=== PATIENT | male | born 1970 | race Caucasian/White ===

== ENCOUNTER 2019-08-17 17:50 | Emergency (ER) | payer MEDICAID, OTHER ==
[~2019-08-17] VITALS: Ht 188 cm; Wt 77.3 kg
[~2019-08-17 17:50] MED LIST: BACDS PO; CLOT24CR TOP; HYDR1TAB PO; IBUP-1984 PO; MOT200T PO
[2019-08-17 18:09] VITALS: BP 119/75
[2019-08-17] MEDS ORDERED: HYDROcodone/acetaminophen 5mg/325mg tablet PO ONE (19:15)
[2019-08-17] MEDS ORDERED: BUPIVAcaine/PF 7.5mg/ml (0.75%) 10ml vial IJ ONE (19:15)
[2019-08-17] MEDS ORDERED: CLIN150C2 PO (20:08)
[2019-08-17] MEDS ORDERED: HYDR-3965 PO (20:08)
[2019-08-17] MEDS ORDERED: L. R1CAP4 PO (20:10)
== END 2019-08-17 20:20 | disposition home or self-care (01) ==
LOC: ER 17:50
DX: K04.7 Periapical abscess without sinus (principal); K02.9 Dental caries, unspecified; Z88.0 Allergy status to penicillin; Z79.899 Other long term (current) drug therapy
CPT/HCPCS: 41800; 99283; J3490

== ENCOUNTER 2019-12-09 15:26 | Emergency (ER) | payer MEDICAID ==
[~2019-12-09] VITALS: Ht 188 cm; Wt 75.9 kg
[~2019-12-09 15:26] MED LIST changes: +L. R1CAP4 PO
[2019-12-09 15:41] VITALS: BP 103/64
[2019-12-09] MEDS ORDERED: CEPH500C5 PO (17:00)
[2019-12-09] MEDS ORDERED: SULF1TAB49 PO (17:00)
== END 2019-12-09 17:14 | disposition home or self-care (01) ==
LOC: ER 15:26
DX: L02.31 Cutaneous abscess of buttock (principal); Z86.19 Personal history of other infectious and parasitic diseases; Z88.0 Allergy status to penicillin; Z79.899 Other long term (current) drug therapy
CPT/HCPCS: 10060; 99283

== ENCOUNTER 2021-01-12 11:54 | Emergency (ER) | payer MEDICAID ==
[~2021-01-12] VITALS: Ht 188 cm; Wt 72.7 kg
[2021-01-12 12:13] VITALS: BP 117/74
--- NOTE | 2021-01-12 13:23 | NUR ---
PT CALLED X3 TO ER ROOM, PT NIL, CHG RN/PROVIDER NOTIFIED, NO FURTHER ACTION ORDERED.
== END 2021-01-12 13:23 | disposition left against medical advice (07) ==
LOC: ER 11:55
DX: R10.9 Unspecified abdominal pain (principal); Z53.21 Procedure and treatment not carried out due to patient leaving prior to being seen by health care provider

== ENCOUNTER 2021-09-27 11:36 | Emergency (ER) | payer MEDICAID ==
[~2021-09-27] VITALS: Ht 188 cm; Wt 71.0 kg
[2021-09-27 14:16] LABS: HEMATOCRIT 35.7 % (42.0-52.0); HEMOGLOBIN 11.1 g/dl (14.0-17.9); LYMPHOCYTES % (AUTO) 2.8 % (21-51); RED CELL DISTRIBUTION WIDTH 19.6 % (11.5-14.5)
[2021-09-27 14:21] LABS: BASOPHILS # (AUTO) 10.6 X10'3 (0-0.2); BASOPHILS % (AUTO) 7.7 % (0-1); EOSINOPHILS # (AUTO) 5.6 X10'3 (0-0.9); LYMPHOCYTES # (AUTO) 3.9 X10'3 (1.1-4.8); MEAN CORPUSCULAR HEMOGLOBIN 27.6 PG (27.0-31.0); MEAN PLATELET VOLUME 8.4 FL (7.4-10.4); MONOCYTES # (AUTO) 2.2 X10'3 (0-0.9); MONOCYTES % (AUTO) 1.6 % (2-12); NEUTROPHILS % (AUTO) 83.9 % (42-75); PLATELET COUNT 818 X10'3 (140-440); RED BLOOD COUNT 4.01 X10'6 (4.70-6.10)
[2021-09-27 14:24] LABS: WHITE BLOOD COUNT 138.4 X10'3 (4.5-11.0)
[2021-09-27 14:32] LABS: ALANINE AMINOTRANSFERASE 12 U/L (12-78); ALBUMIN 3.1 G/DL (3.4-5.0); ALBUMIN/GLOBULIN RATIO 0.7 (1.1-1.5); ALKALINE PHOSPHATASE 97 IU/L (46-116); ANION GAP 8 (8-16); ASPARTATE AMINO TRANSFERASE 13 U/L (10-37); BILIRUBIN,TOTAL 0.4 MG/DL (0.1-1.0); BLOOD UREA NITROGEN 15 MG/DL (7-18); BUN/CREATININE RATIO 14.7 (5.4-32.0); CALCIUM 8.3 MG/DL (8.5-10.1); CHLORIDE 103 MMOL/L (99-107); CREATININE 1.02 MG/DL (0.60-1.10); GLUCOSE 87 MG/DL (70-104); LIPASE 50 U/L (73-393); POTASSIUM 4.6 MMOL/L (3.5-5.1); SODIUM 139 MMOL/L (135-145); TOTAL CARBON DIOXIDE 28.3 MMOL/L (24-32); TOTAL PROTEIN 7.8 G/DL (6.4-8.2); eGFR 77 ML/MIN
[2021-09-27 15:26] LABS: PLATELET ESTIMATE INCREASED; TOTAL CELLS COUNTED 100
[2021-09-27 15:27] LABS: GIANT PLATELET FEW; LARGE PLATELETS MODERATE
[2021-09-27 15:28] LABS: NUCLEATED RED BLOOD CELLS 3 /100WBC (0-0)
[2021-09-27 15:52] LABS: MICROCYTOSIS 2+; POLYCHROMASIA 1+
[2021-09-27] MEDS ORDERED: normal saline 1000ml 1,000 ML IV ONE (18:05)
[2021-09-27] MEDS ORDERED: ketorolac tromethamine 15mg/ml inj. IV ONE (18:05)
[2021-09-27] MEDS ORDERED: morphine 4 MG/ML inj SYRINge IV ONE ×2 (18:05→19:50)
[2021-09-27] MEDS ORDERED: iohexol 300mg/ml 100ml inj. ONE (18:06)
[2021-09-27] MEDS ORDERED: PANT-47 PO (19:48)
[2021-09-27] MEDS ORDERED: MELO-100 PO (19:48)
[2021-09-27] MEDS ORDERED: HYDR-3965 PO (19:48)
[2021-09-27] MEDS ORDERED: famotidine/PF 10 mg/ml inj IV ONE (19:50)
[2021-09-27] MEDS ORDERED: HYDROcodone/acetaminophen 5mg/325mg tablet PO ONE (19:50)
[2021-09-27] MEDS ORDERED: acetaminophen 325mg tablet PO ONE (19:50)
[2021-09-27] MEDS ORDERED: pantoprazole 40 MG vial IV ONE (19:50)
--- NOTE | 2021-09-27 20:41 | NUR ---
PATIENT NOT IN LOBBY
[2021-09-27 20:48] VITALS: BP 107/74
== END 2021-09-27 20:50 | disposition home or self-care (01) ==
LOC: ER 11:37
DX: D72.829 Elevated white blood cell count, unspecified (principal); Z88.0 Allergy status to penicillin; Z79.899 Other long term (current) drug therapy
CPT/HCPCS: 36415; 74178; 80053; 83690; 85007; 85025; 96361; 96374; 96375; 96376; 99284; C9113; J1885; J2270; J3490; J7030; Q9967

== ENCOUNTER 2022-09-14 04:25 | Emergency (ER) | payer MEDICAID ==
[~2022-09-14] VITALS: Ht 188 cm; Wt 68.2 kg
[~2022-09-14 04:25] MED LIST changes: +MELO-100 PO; +PANT-47 PO
[2022-09-14] MEDS ORDERED: ondansetron/PF 4mg/2ml inj IV ONE (04:35)
[2022-09-14] MEDS ORDERED: morphine 4 MG/ML inj SYRINge IV ONE (04:35)
[2022-09-14] MEDS ORDERED: proparacaine 0.5% ophthalmic drops 15ml LEFTEYE STA (04:40)
[2022-09-14] MEDS ORDERED: timolol 0.5% ophthalmic solution 5ml bottle LEFTEYE ONE (04:50)
[2022-09-14] MEDS ORDERED: latanoprost 0.005% 2.5ml ophthalmic drops LEFTEYE ONE (04:50)
[2022-09-14] MEDS ORDERED: fentaNYL/PF 50MCG/1 ML 2ML syringe IV ONE ×2 (05:10→05:30)
[2022-09-14 05:17] LABS: BASOPHILS % (AUTO) 0.6 % (0-1); EOSINOPHILS % (AUTO) 0.7 % (0-6); HEMATOCRIT 39.1 % (42.0-52.0); HEMOGLOBIN 13.1 g/dl (14.0-17.9); LYMPHOCYTES # (AUTO) 1.4 X10'3 (1.1-4.8); LYMPHOCYTES % (AUTO) 30.9 % (21-51); MEAN CORPUSCULAR HGB CONC 33.5 g/dL (33.0-36.5); MEAN CORPUSCULAR VOLUME 110.4 FL (78-98); MEAN PLATELET VOLUME 7.4 FL (7.4-10.4); MONOCYTES # (AUTO) 0.4 X10'3 (0-0.9); MONOCYTES % (AUTO) 9.5 % (2-12); NEUTROPHILS # (AUTO) 2.6 X10'3 (1.8-7.7); NEUTROPHILS % (AUTO) 58.3 % (42-75); PLATELET COUNT 127 X10'3 (140-440); RED BLOOD COUNT 3.54 X10'6 (4.70-6.10); RED CELL DISTRIBUTION WIDTH 14.9 % (11.5-14.5); WHITE BLOOD COUNT 4.4 X10'3 (4.5-11.0)
[2022-09-14 05:32] LABS: ALANINE AMINOTRANSFERASE 27 U/L (12-78); ALBUMIN 4.1 G/DL (3.4-5.0); ALBUMIN/GLOBULIN RATIO 1.1 (1.1-1.5); ALKALINE PHOSPHATASE 104 IU/L (46-116); ANION GAP 8 (8-16); ASPARTATE AMINO TRANSFERASE 24 U/L (10-37); BILIRUBIN,TOTAL 0.7 MG/DL (0.1-1.0); BLOOD UREA NITROGEN 11 MG/DL (7-18); BUN/CREATININE RATIO 13.4 (5.4-32.0); CALCIUM 9.3 MG/DL (8.5-10.1); CHLORIDE 101 MMOL/L (99-107); CREATININE 0.82 MG/DL (0.60-1.10); GLUCOSE 113 MG/DL (70-104); POTASSIUM 3.7 MMOL/L (3.5-5.1); SODIUM 138 MMOL/L (135-145); TOTAL CARBON DIOXIDE 28.7 MMOL/L (24-32); eGFR > 90 ML/MIN
[2022-09-14] MEDS ORDERED: ketorolac trometh. 30mg/ml inj. IV ONE (05:40)
[2022-09-14 05:41] LABS: PLATELET ESTIMATE DECREASED
[2022-09-14] MEDS ORDERED: dorzolamide 2% ophthalmic drops 10ml LEFTEYE ONE (05:45)
[2022-09-14] MEDS ORDERED: acetaZOLAMIDE IV 500mg inj IV SCH ×2 (06:00→08:00)
[2022-09-14] MEDS ORDERED: acetaZOLAMIDE IV 500mg inj IV ONE (06:00)
[2022-09-14 06:34] VITALS: BP 118/76
== END 2022-09-14 11:20 | disposition home or self-care (01) ==
LOC: ER 04:26
DX: H02.846 Edema of left eye, unspecified eyelid (principal); M79.652 Pain in left thigh; H57.12 Ocular pain, left eye; Z86.19 Personal history of other infectious and parasitic diseases; Z88.0 Allergy status to penicillin; Z79.2 Long term (current) use of antibiotics; Z79.899 Other long term (current) drug therapy
CPT/HCPCS: 36415; 80053; 85008; 85025; 96374; 96375; 99284; J1885; J2270; J2405; J3010

== ENCOUNTER 2023-02-16 19:20 | Emergency (ER) | payer MEDICAID ==
[~2023-02-16] VITALS: Ht 188 cm; Wt 67.7 kg
[2023-02-16 19:59] VITALS: BP 129/69
== END 2023-02-17 01:06 | disposition left against medical advice (07) ==
LOC: ER 19:21
DX: R60.0 Localized edema (principal); Z53.21 Procedure and treatment not carried out due to patient leaving prior to being seen by health care provider
CPT/HCPCS: 99281

== ENCOUNTER 2023-11-25 12:56 | Emergency (ER) | payer MEDICAID | END 2023-11-25 19:22 | disposition left against medical advice (07) | LOC: ER 12:56 | DX: R10.9 Unspecified abdominal pain (principal); Z53.21 Procedure and treatment not carried out due to patient leaving prior to being seen by health care provider ==

== ENCOUNTER 2024-01-01 06:22 | Inpatient (IN) | payer MEDICAID ==
[~2024-01-01] VITALS: Ht 188 cm; Wt 69.7 kg
[2024-01-01 08:41] LABS: BASOPHILS % (AUTO) 0.5 % (0-1); EOSINOPHILS % (AUTO) 0.6 % (0-6); HEMATOCRIT 34.9 % (42.0-52.0); HEMOGLOBIN 11.9 g/dl (14.0-17.9); LYMPHOCYTES % (AUTO) 36.9 % (21-51); MEAN CORPUSCULAR HGB CONC 34.3 g/dL (33.0-36.5); MEAN CORPUSCULAR VOLUME 99.4 FL (78-98); MEAN PLATELET VOLUME 7.2 FL (7.4-10.4); MONOCYTES # (AUTO) 0.6 X10'3 (0-0.9); MONOCYTES % (AUTO) 11.4 % (2-12); NEUTROPHILS # (AUTO) 2.8 X10'3 (1.8-7.7); NEUTROPHILS % (AUTO) 50.6 % (42-75); PLATELET COUNT 144 X10'3 (140-440); RED BLOOD COUNT 3.51 X10'6 (4.70-6.10); RED CELL DISTRIBUTION WIDTH 15.1 % (11.5-14.5); WHITE BLOOD COUNT 5.4 X10'3 (4.5-11.0)
[2024-01-01 10:06] LABS: ALBUMIN 3.4 G/DL (3.4-5.0); ANION GAP 11 (8-16); BLOOD UREA NITROGEN 21 MG/DL (7-18); BUN/CREATININE RATIO 26.9 (10.0-20.0); CALCIUM 8.3 MG/DL (8.5-10.1); CHLORIDE 105 MMOL/L (99-107); CREATININE 0.78 MG/DL (0.60-1.10); ETHANOL < 10 MG/DL (<10); GLUCOSE 96 MG/DL (70-104); POTASSIUM 3.3 MMOL/L (3.5-5.1); SODIUM 140 MMOL/L (135-145); eCRCL 107 ML/MIN; eGFR > 90 ML/MIN
[2024-01-01] MEDS ORDERED: DASA100T PO (15:08)
[2024-01-01 17:14] LABS: BILIRUBIN,URINE NEGATIVE (Neg); CLARITY,URINE CLOUDY (Clear); COLOR,URINE YELLOW (Yellow); GLUCOSE, URINE NEGATIVE (Neg); KETONES,URINE 15 mg/dl (Neg); LEUKOCYTE ESTERASE ,URINE TRACE (Neg); NITRITES, URINE NEGATIVE (Neg); OCCULT BLOOD,URINE NEGATIVE (Neg); PROTEIN,URINE 30 mg/dl (Neg)
[2024-01-01 17:27] LABS: MUCUS STRANDS MANY /LPF (Neg); SQUAMOUS EPITHELIAL CELL,UR MODERATE /LPF (FEW); UA COLLECTION TYPE NON-SPECIFIED
[2024-01-01 17:30] LABS: SPERM FEW /HPF (NEGATIVE); TRANSITIONAL EPI CELLS,URINE FEW /HPF
[2024-01-01 17:31] LABS: BACTERIA,URINE FEW /HPF (Neg); WBC,URINE 20-30 /HPF (0-4)
[2024-01-01 18:35] LABS: URINE AMPHETAMINE SCREEN POSITIVE (Neg); URINE BARBITUATE SCREEN NEGATIVE (Neg); URINE BENZODIAZEPINES SCREEN NEGATIVE (Neg); URINE CANNABINOID SCREEN POSITIVE (Neg); URINE COCAINE SCREEN NEGATIVE (Neg); URINE METHADONE SCREEN NEGATIVE (Neg); URINE OPIATE SCREEN NEGATIVE (Neg); URINE PHENCYCLIDINE SCREEN NEGATIVE (Neg)
[2024-01-01] MEDS: sulfamethoxazole/trimethoprim DS (800/160mg) tablet PO SCH (20:10)
[2024-01-02] MEDS: DASATINIB PO SCH (08:44)
[2024-01-02 15:02] VITALS: BP 94/57; PULSE 64; RESP 16; TEMP 98.7; O2SAT 99
[2024-01-02] MEDS ORDERED: mag hydrox/Alum hydrox/simeth 30ml oral suspension PO PRN (15:30)
[2024-01-02] MEDS ORDERED: loperamide 2mg capsule PO PRN (15:30)
[2024-01-02] MEDS ORDERED: acetaminophen 325mg tablet PO PRN (15:30)
[2024-01-02 15:45] VITALS: RESP 16; O2SAT 99
[2024-01-02] MEDS: magnesium hydroxide 30ml (MOM) UD suspension PO PRN (16:12)
[2024-01-02] MEDS: nicotine 21mg patch - 24 hr TD SCH (16:16)
[2024-01-02] MEDS: NICOTINE POLACRILEX 2 MG LOZENGE BC PRN (19:51)
[2024-01-02 19:55] VITALS: RESP 16
[2024-01-02 20:23] VITALS: BP 107/55; PULSE 66; RESP 16; TEMP 98.2; O2SAT 99
[2024-01-03 07:00] VITALS: RESP 16; O2SAT 98
[2024-01-03 08:00] VITALS: BP 101/50; PULSE 58; RESP 16; TEMP 98.6; O2SAT 98
[2024-01-03] MEDS ORDERED: nicotine 21mg patch - 24 hr TD SCH (08:00)
[2024-01-03 08:24] LABS: CHOL/HDL RATIO 2.3 (0.00-4.99); CHOLESTEROL 107 MG/DL (0-200); HDL CHOLESTEROL 47 MG/DL (35-60); LDL CHOLESTEROL 45 MG/DL (50-100); POTASSIUM 3.8 MMOL/L (3.5-5.1); THYROID STIMULATING HORMONE 1.33 ulU/ml (0.34-4.50); TRIGLYCERIDES 54 MG/DL (20-135)
[2024-01-03 08:27] LABS: HEMOGLOBIN A1C 5.1 % (4.5-6.2)
[2024-01-03] MEDS: acetaminophen 325mg tablet PO PRN (08:30)
[2024-01-03 19:00] VITALS: RESP 16; O2SAT 100
[2024-01-03 20:00] VITALS: BP 103/56; PULSE 64; RESP 16; TEMP 98.7; O2SAT 100
[2024-01-03] MEDS: mirtazapine 15mg tablet PO SCH (20:53)
[2024-01-04 07:00] VITALS: RESP 16; O2SAT 98
[2024-01-04 08:14] VITALS: BP 105/53; PULSE 53; RESP 16; TEMP 98.1; O2SAT 98
[2024-01-04 19:46] VITALS: BP 91/61; PULSE 66; RESP 16; TEMP 98.4; O2SAT 96
[2024-01-05 07:00] VITALS: RESP 16; O2SAT 97
[2024-01-05 08:00] VITALS: BP 94/44; PULSE 50; RESP 16; TEMP 97.9; O2SAT 97
[2024-01-05] MEDS ORDERED: SULF1TAB45 PO (15:35)
[2024-01-05] MEDS ORDERED: NICO-907 BC (15:35)
[2024-01-05] MEDS ORDERED: NICO-687 TD (15:35)
[2024-01-05] MEDS ORDERED: MIRT-87 PO (15:35)
== END 2024-01-05 17:04 | disposition home or self-care (01) | DRG 751 ==
LOC: ER 06:23 → ED HOLD 01-02 11:30 → ADULT MH 01-02 15:05
PROVIDERS: ADMIT Psychiatry & Neurology Psychiatry; ATTEND Psychiatry & Neurology Psychiatry
DX: F33.1 Major depressive disorder, recurrent, moderate (principal); C95.90 Leukemia, unspecified not having achieved remission; R45.851 Suicidal ideations; F17.210 Nicotine dependence, cigarettes, uncomplicated; F41.9 Anxiety disorder, unspecified; Z20.822 Contact with and (suspected) exposure to COVID-19; E87.6 Hypokalemia; F15.90 Other stimulant use, unspecified, uncomplicated; B18.2 Chronic viral hepatitis C; Z79.899 Other long term (current) drug therapy; Z88.0 Allergy status to penicillin
CPT/HCPCS: 36415; 80048; 80061; 80305; 80320; 81001; 83036; 84132; 84443; 85025; 87081; 87088; 87811; 99285; A6212; A6213

== ENCOUNTER 2025-01-10 15:21 | Emergency (ER) | payer MEDICAID ==
[~2025-01-10] VITALS: Ht 188 cm; Wt 74.1 kg
[~2025-01-10 15:21] MED LIST changes: -BACDS PO; -CLOT24CR TOP; +DASA100T PO; -HYDR1TAB PO; -IBUP-1984 PO; -L. R1CAP4 PO; -MELO-100 PO; +MIRT-87 PO; -MOT200T PO; +NICO-687 TD; +NICO-907 BC; -PANT-47 PO; +SULF1TAB45 PO
[2025-01-10 15:28] VITALS: BP 137/75; PULSE 82; RESP 18; TEMP 97.2; O2SAT 97
== END 2025-01-10 21:47 | disposition left against medical advice (07) ==
LOC: ER 15:21
DX: R53.1 Weakness (principal); Z53.21 Procedure and treatment not carried out due to patient leaving prior to being seen by health care provider